=== PATIENT | female | born 1955 | race Caucasian/White ===

== ENCOUNTER → 2018-10-13 10:11 | Outpatient (CLI) | payer BC, SELFPAY ==
--- NOTE | 2018-10-13 10:16 | MM_ITS ---
MM Dig screening mamm BI w/CAD CAD Screening COMPARISON: Digital mammograms with CAD 07/30/2017 and 07/24/2016 INDICATION: There is a history of breast cancer in patient's paternal cousin diagnosed after menopause. There has been a previous biopsy right breast for benign disease. TECHNIQUE: Standard CC and MLO images were obtained. R2 CAD reviewed. FINDINGS: Moderate diffuse fibroglandular densities are seen in the central portions of both breasts. There is a biopsy clip right breast and there are couple mole markers left breast. There is no suspicious lesion and there are no suspicious microcalcifications. IMPRESSION: Moderate breast density with no suspicious lesion seen BI-RADS Category: 2 Benign Finding(s) RECOMMENDED FOLLOW-UP: 1YR - 1 YEAR FOLLOW-UP (A letter has been sent to the patient regarding results of the study.)
== END ==
PROVIDERS: PCP Family Medicine; Visit Provider Family Medicine
DX: Z12.31 Encounter for screening mammogram for malignant neoplasm of breast (principal)
CPT/HCPCS: 77067

== ENCOUNTER → 2018-11-21 09:40 | Outpatient (CLI) | payer BC, SELFPAY ==
--- NOTE | 2018-11-21 09:45 | XR_ITS ---
EXAM: XR lumbar spine min 4V HISTORY: ITS.REASON: MIDLINE LOW BACK PAIN W/O SCIATICA ORDERING PHYSICIAN: Santosh Gillespie MD PATIENT AGE: 63 years COMPARISON: None FINDINGS: There is minimal levoscoliosis of lumbar spine with multilevel degenerative disc disease from L1 S1. There is 3 mm anterolisthesis of L5 on S1. Mild facet sclerotic changes are present at L4-L5 and L5-S1. No fracture or dislocation. No lytic or blastic change. IMPRESSION: Lumbar spondylosis with degenerative disc disease and facet arthritic change
== END ==
PROVIDERS: PCP Family Medicine; Visit Provider Family Medicine
DX: M54.5 Low back pain (principal)
CPT/HCPCS: 72110

== ENCOUNTER → 2019-10-16 07:36 | Outpatient (CLI) | payer BC, SELFPAY ==
--- NOTE | 2019-10-16 08:07 | MM_ITS ---
PROCEDURE: MM DIG SCREENING MAMM BI W/CAD CLINICAL INDICATION: SCREENING COMPARISON: [facility] DIG MAMM-SCREEN ALON from 07/24/2016 [facility] DIG MAMM-SCREEN ALON W/CAD from 07/30/2017 [facility] MM Dig screening mamm BI w/CAD from 10/13/2018 TECHNIQUE: Standard CC and MLO images and 3D Tomosynthesis was obtained. R2 CAD reviewed. FINDINGS: The breasts are dense. Metallic stereotactic biopsy clip is seen in the upper-outer quadrant of the right breast. There is no discrete mass suspicious clustered microcalcification or other findings suspicious for malignancy. Benign appearing calcifications are noted. IMPRESSION: BI-RAD Category: 2 Benign Finding(s) FOLLOW-UP: 1YR 1 Year Follow-up (A letter has been sent to the patient regarding results of the study.) Dictated by: Moreno Bryan 10/16/2019 09:20 Electronically signed by Moreno Bryan in [place] 10/16/2019 09:20
== END ==
PROVIDERS: PCP Family Medicine; Visit Provider Family Medicine
DX: Z12.31 Encounter for screening mammogram for malignant neoplasm of breast (principal)
CPT/HCPCS: 77063; 77067

== ENCOUNTER 2020-07-23 07:35 | Emergency (ER) | payer BC, SELFPAY ==
--- NOTE | 2020-07-23 | ECG_ITS ---
APPROVED REPORT Exam: Resting ECG HR:66 bpm ECG Measurements Heart Rate 66 AXES WV 156 P 59 QRSd 108 QRS 35 QT 438 T 50 QTc 459 Conclusion Normal sinus rhythm Low voltage QRS Incomplete right bundle branch block Borderline ECG Electronically signed by : David Garcia, 07/25/2020 07:27:41
[2020-07-23 07:35] VITALS: BP 150/86; PULSE 61; RESP 19; TEMP 36.4; O2SAT 100; BMI 22.3
--- NOTE | 2020-07-23 07:59 | XR_ITS ---
PROCEDURE: XR CHEST PORTABLE Referring Doctor: Anthony Diaz Patient Age:65Y CLINICAL HISTORY: dizziness nonsmoker COMPARISON: CR [id number] XR Lumbar spine min 4V from 11/21/2018 FINDINGS: Portable upright AP CXR but performed today with no previous CXR for comparison . The lungs are well expanded and clear with nothing definitely acute. Cardiomediastinal silhouette and pulmonary vascularity are within normal limits. The lungs are clear without infiltrates, suspicious nodules, or pleural effusions. No acute bony abnormalities... Overlying fabric accounts for the linear folds appearing features projected over the right chest IMPRESSION: No acute findings. Lungs clear. Negative portable chest Dictated by: Todd Anthony MD 07/23/2020 14:01 Todd Anthony MD in [place] 07/23/2020 14:01
--- NOTE | 2020-07-23 08:04 | HMH.EDDIZZ ---
ED Disposition Clinical Impression: Benign paroxysmal positional vertigo Qualifiers: Laterality: left Qualified Code(s): H81.12 - Benign paroxysmal vertigo, left ear Disposition: Home, Self-Care Condition on Discharge: Good Instructions: Vertigo Prescriptions: Ondansetron [Zofran 4mg ODT] 4 mg PO Q6HP PRN #30 tab.rapdis PRN Reason: Nausea Transmission Status: Pending to [facility] # Meclizine HCl [Meclizine 25mg Tab] 25 mg PO Q8HP PRN #30 tab PRN Reason: dizziness/vertigo Transmission Status: Pending to [facility] # Referrals: PCP,No [Non-Staff] - - Critical Care Critical Care Time: No Attestation: On 07/23/20, the high probability of a clinically significant, sudden or life threatening deterioration of the following system(s) required my full and direct attention, intervention and personal management. The time I documented below is in addition to time spent performing reported procedures but includes the following listed in this critical care notation. Medical Decision Making - Medical Records Medical records reviewed: Yes: I reviewed the patient's medical records. - Sina Inquiry Pt receiving controlled substance: No Vital Signs: 07/23/20 07:35 07/23/20 08:27 07/23/20 09:21 Temperature 97.5 F L Temperature Source Oral Pulse Rate [Left Radial] 61 63 61 Respiratory Rate 19 Blood Pressure [Right Arm] 150/86 H 149/82 H 141/77 H Blood Pressure Mean [Right Arm] 107 104 98 Blood Pressure Source [Right Arm] Automatic Cuff Automatic Cuff Automatic Cuff Blood Pressure Position [Right Arm] Sitting Sitting Sitting 02 Sat by Pulse Oximetry 100 95 97 Oxygen Delivery Method Room Air Room Air Room Air - Lab Data Lab results reviewed: Yes: I reviewed the patient's lab results. Lab Results 07/23/20 07:30: WBC 4.6 L, RBC 4.86, Hgb 14.1, Hct 44.3, MCV 91.1, MCH 29.1, MCHC 31.9, RDW 13.5, Plt Count 211, MPV 7.7, Neut % (Auto) 61.3, Lymph % (Auto) 30.6, [place] % (Auto) 4.5, Eos % (Auto) 2.9, Baso % (Auto) 0.7, Neut # (Auto) 2.8, Lymph # (Auto) 1.4, [place] # (Auto) 0.2, Eos # (Auto) 0.1, Baso # (Auto) 0.0 07/23/20 07:30: Sodium 138, Potassium 3.8, Chloride 103, Carbon Dioxide 29, Anion Gap 9.8, BUN 22 H, Creatinine 0.70, Estimated Creat Clear 49, Estimated GFR 84, Est GFR ( Amer) 102, Glucose 110 H, Calcium 9.3, Total Bilirubin 0.5, AST 58 H, ALT 39, Alkaline Phosphatase 46, Total Protein 6.9, Albumin 4.1, Globulin 2.8, Albumin/Globulin Ratio 1.5 Result diagrams: 07/23/20 07:30 07/23/20 07:30 Orders (Tests/Meds): ED MEDICATIONS Discontinued Medications Generic Name Dose Route Start Last Admin Trade Name Freq PRN Reason Stop Dose Admin Sodium Chloride 1,000 mls @ 999 mls/hr 07/23/20 08:00 07/23/20 08:07 Sod Chlor 0.9% 1000ml Bag IV 07/23/20 09:00 999 mls/hr .Q1H1M CHELSY Administration Meclizine HCl 25 mg 07/23/20 07:59 07/23/20 08:08 Meclizine 25mg Tablet PO 07/23/20 08:00 25 mg ONCE ONE Administration Ondansetron HCl 4 mg 07/23/20 07:59 07/23/20 08:07 Ondansetron 4mg/2ml Vial IV 07/23/20 08:00 4 mg ONCE ONE Administration Promethazine HCl 12.5 mg 07/23/20 09:03 07/23/20 09:24 Promethazine Hcl 25mg/Ml 1ml Vial IV 07/23/20 09:04 12.5 mg ONCE ONE Administration Sodium Chloride 25 ml 07/23/20 09:03 07/23/20 09:24 Sodium Chloride 0.9% 25ml Bag IV 07/23/20 09:04 25 ml ONCE ONE Administration ORDERS Category Date Time Status XR chest portable Stat Exams 07/23/20 07:59 Taken - Radiology Data #1 Image(s): Chest Image Reviewed: Yes I reviewed the patient's radiology image Preliminary Findings: Normal/NAD - CT Data CT Scan: Head Time Received: 09:[address] Reviewed: Yes: I have reviewed the patient's CT results, I have viewed the radiologist's interpretation Preliminary Findings: Normal/NAD - ECG Data Tracing #1 ECG initial impression date: 07/23/20 ECG initial impression time:
--- NOTE | 2020-07-23 08:08 | CT_ITS ---
PROCEDURE: CT HEAD/BRAIN WO CON Referring Doctor: Anthony Manzanares Patient Age:65Y CLINICAL INDICATION: vertiginous symptoms. Vertigo since some some side 3 a.m. COMPARISON: No exams were available for comparison TECHNIQUE: No IV contrast. Standard axial images were obtained. All CT scans at the facility use one or more dose reduction, viz: automated exposure control, ma/kV adjustment per patient size (including targeted exams where dose is matched to indication, i.e. head), or iterative reconstruction technique. FINDINGS: No acute intracranial findings. No intracranial hemorrhage.. No territorial infarct evident There is mild cerebral atrophy age-appropriate No hydrocephalus.The ventricles and basal cisterns appear clear and satisfactory. No mass or midline shift nor mass effect. No subdural or extra-axial fluid collection is evident. Posterior fossa unremarkable.. I believe minimal streak artifact from base of skull accounts for some subtle lower density at the juan but no convincing abnormalities here. If symptoms should persist/recur may want to consider a follow-up MRI pre and postcontrast for more sensitive evaluation at posterior fossa Skull intact- calvarium unremarkable appearance. Nomastoid effusions. Mastoid air cells are well developed and clear. Middle ear clear bilaterally. IAC's symmetric.. CP angle regions appear clear on this noncontrast study Incidental note generous cerumen at the left external auditory canal basically occluding the left canal. Minimal cerumen at the right external auditory canal also noted Nosinus air-fluid level. Visualized portions of the paranasal sinuses and orbits unremarkable. IMPRESSION: No acute intracranial findings Incidental note: Generous cerumen appears to nearly occluding the left external auditory. Minimal cerumen at the right external auditory canal also noted Dictated by: Todd Anthony MD 07/23/2020 09:06 Todd Anthony MD in [place] 07/23/2020 09:06
[2020-07-23 08:10] LABS: Basophils % 0.7 % (0.1-2.0); Eosinophils # 0.1 K/mm3 (0.0-0.4); Eosinophils % 2.9 % (0.1-12.0); Hematocrit 44.3 % (37.0-47.0); Hemoglobin 14.1 g/dL (12.2-16.2); Lymphocytes # 1.4 K/mm3 (0.7-4.5); Lymphocytes % 30.6 % (10-50); Mean Corpuscular HGB Conc 31.9 g/dL (31.8-35.4); Mean Corpuscular Hemoglobin 29.1 pg (27.0-31.2); Mean Corpuscular Volume 91.1 fl (81-99); Mean Platelet Volume 7.7 fl (7.4-10.4); Monocytes # 0.2 K/mm3 (0.1-1.0); Monocytes % 4.5 % (1.7-9.3); Neutrophils # 2.8 K/mm3 (1.8-7.8); Neutrophils % 61.3 % (37.0-80.0); Platelet Count 211 K/mm3 (142-424); Red Blood Count 4.86 M/mm3 (4.20-5.40); Red Cell Distribution Width 13.5 % (11.5-17.5); White Blood Count 4.6 K/mm3 (4.8-10.8)
[2020-07-23 08:11] LABS: Chloride 103 mmol/L (98-107); Potassium 3.8 mmoL/L (3.5-5.1); Sodium 138 mmol/L (136-145)
--- NOTE | 2020-07-23 08:11 | PC.NURSE ---
rad at bedside
[2020-07-23 08:14] LABS: Alanine Aminotransferase 39 U/L (12-78); Albumin Level 4.1 g/dl (3.5-5.0); Albumin/Globulin Ratio 1.5 (1.1-1.8); Alkaline Phosphatase 46 U/L (38-126); Anion Gap 9.8 mEq/L (5-15); Aspartate Amino Transferase 58 U/L (14-36); Bilirubin,Total 0.5 mg/dl (0.2-1.3); Blood Urea Nitrogen 22 mg/dl (7-17); Carbon Dioxide 29 mmol/L (22.0-30.0); Creatinine Clearance Estimated 49 mL/min (50-200); Estimated Glomerular Filt Rate 84 ml/min (>60); GFR (African American) 102 ML/MIN (>60); Globulin 2.8 g/dL (1.3-3.2); Total Protein,Serum 6.9 g/dl (6.3-8.2)
[2020-07-23 08:15] LABS: Calcium 9.3 mg/dl (8.4-10.2); Glucose 110 mg/dl (74-100)
[2020-07-23 08:27] VITALS: BP 149/82; PULSE 63; O2SAT 95
--- NOTE | 2020-07-23 08:36 | PC.NURSE ---
Pt with rad.
[2020-07-23 09:21] VITALS: BP 141/77; PULSE 61; O2SAT 97
[2020-07-23 10:20] VITALS: BP 141/77; PULSE 61; RESP 20; TEMP 36.4; O2SAT 97
== END 2020-07-23 10:21 | disposition home or self-care (01) ==
PROVIDERS: Emergency Medicine; Emergency Provider Emergency Medicine; PCP Family Medicine
DX: H81.12 Benign paroxysmal vertigo, left ear (principal); I10 Essential (primary) hypertension; E78.5 Hyperlipidemia, unspecified; Z88.0 Allergy status to penicillin
CPT/HCPCS: 70450; 71045; 80053; 85025; 93005; 96374; 96375; 99283; J2405

== ENCOUNTER → 2020-10-27 10:31 | Outpatient (CLI) | payer MEDICARE, SELFPAY ==
--- NOTE | 2020-10-27 10:34 | MM_ITS ---
PROCEDURE: MM DIG SCREENING MAMM BI W/CAD Digital Breast Tomosynthesis Included CLINICAL INDICATION: SCREENING There is a history of breast cancer in the patient's paternal cousin diagnosed in 50s. There has been a previous biopsy right breast for benign disease. COMPARISON: MG [facility] DIG MAMM-SCREEN ALON W/CAD from 07/30/2017 MG [facility] MM Dig screening mamm BI w/CAD from 10/13/2018 MG MM DIG SCREENING MAMM BI W/CAD from 10/16/2019 . TECHNIQUE: Standard CC and MLO images and 3D Tomosynthesis was obtained. R2 CAD reviewed. FINDINGS: Moderate scattered fibroglandular densities are seen the central portions of both breasts and the findings are bilateral and symmetrical. There is a biopsy clip upper central portion right breast. There is no suspicious lesion in either breast and there are no suspicious microcalcifications. IMPRESSION: Moderate diffuse breast density with no suspicious lesions seen BI-RAD Category: 2 Benign Finding(s) FOLLOW-UP: 1YR 1 Year Follow-up (A letter has been sent to the patient regarding results of the study.) Dictated by: Dr. Ayden Jay MD 11/01/2020 11:53 Dr. Ayden Jay MD in [place] 11/01/2020 11:53
== END ==
PROVIDERS: PCP Family Medicine; Visit Provider Family Medicine
DX: Z12.31 Encounter for screening mammogram for malignant neoplasm of breast (principal)
CPT/HCPCS: 77063; 77067

== ENCOUNTER → 2021-02-27 10:47 | Outpatient (CLI) | payer MEDICARE, SELFPAY | PROVIDERS: Visit Provider Surgery | DX: Z01.812 Encounter for preprocedural laboratory examination (principal); Z20.822 Contact with and (suspected) exposure to COVID-19; Z12.11 Encounter for screening for malignant neoplasm of colon | CPT/HCPCS: U0003 ==

== ENCOUNTER 2021-03-01 09:09 | Day surgery (SDC) | payer MEDICARE, SELFPAY ==
[2021-02-22 14:21] VITALS: BMI 22.3
[2021-03-01 09:27] VITALS: BP 148/80; PULSE 82; RESP 18; TEMP 36.7; O2SAT 96
--- NOTE | 2021-03-01 09:48 | HMH.ANESCL ---
[facility] Anesthesia Checklist - Structural Data Admitted From: Home Planned Operative Procedure/s: colonoscopy Consent for Planned Operative Procedure(s) Verified: Yes - Airway Assessment C-Spine Mobility Assessed: Yes TMJ Mobility Assessed: Yes Dentition: Good Dentition - Neurological Assessment Level of Consciousness: Awake, Alert, Appropriate - Anesthesia Plan Anesthesia Risk discussed: Yes Anesthesia Plan: Verified ASA Class: II Anesthesia Type: MAC [facility] History I have reviewed the patient's past medical history: Yes Medical History: Reports:: Hyperlipidemia, Hypertension Denies:: Cancer, Diabetes Mellitus Type 1, Diabetes Mellitus Type 2, Internal Pacemaker, MRSA, Seizures *Have you ever received a pneumonia vaccine?: No *Have you received a flu vaccine this season?: Yes (05/2020) Anesthesia experience/problems:: none Laterality Cases: Left: Lumpectomy Other Surgeries: Yes: No Previous Surgery, Colonoscopy. No: Pacemaker Amputation: No Fractures: No - *Social History Last grade of school completed: Advanced degree Smoking Status: Never smoker Alcohol Intake: current Alcohol Intake Frequency:: 0-2 drinks per day Substance Use Type: denies use *Occupational Status:: retired Housing: house Household Members: spouse *Travel in the last 8 weeks: None Family Hx:: No significant family history
--- NOTE | 2021-03-01 10:31 | HMH.SCOPE ---
- Procedure: Date: 03/01/21 Patient Date of :: 1955 Procedure Performed:: Colonoscopy to terminal ileum with biopsies and polypectomy Indications:: Patient is a 65-year-old female who presents for follow-up colonoscopy. I had performed colonoscopy on 09/15/2013. She had some terminal ileitis but biopsies were unremarkable. She had a serrated adenoma in the ascending colon. Given the serrated adenoma I have performed follow-up colonoscopy on 07/12/2015. Polyps removed at that time or merely lymphoid nodule, hyperplastic polyp. Given the prior history of serrated adenoma I recommended 5-year follow-up colonoscopy. She is asymptomatic. No family history of colon cancer. Performing Provider:: Hever Whiteside MD Referring Provider:: None Sedation:: MAC sedation Procedure:: Patient was positioned in lateral decubitus position. Adequate intravenous sedation was achieved. Variable stiffness Olympus colonoscope was inserted via the anus. Was advanced to the cecum. Ileocecal valve and appendiceal orifice were clearly identified. In the periappendiceal location there was punctate ulceration. This was biopsied with cold biopsy forceps and sent as periappendiceal biopsy. Colonoscope was advanced into the terminal ileum. There were findings of mild terminal ileitis. Limited biopsy was obtained. In the region of the ascending colon there was a punctate colonic erosion which was biopsied with cold biopsy forceps. Colonoscope was withdrawn through the remainder of the colon. There was a possible polyp at the rectosigmoid region which was difficult to access. This may be lymphoid nodule. This was biopsied with cold biopsy forceps. Retroflexion within the rectum revealed internal hemorrhoids. Colonoscope was withdrawn. Findings:: Appendiceal punctate erosion/ulceration Mild terminal ileitis Ascending colon erosion Possible rectosigmoid polyp removed with cold biopsy forceps Recommendations:: Pending the pathology repeat colonoscopy 5 to 10 years Complications:: None immediately apparent Estimated blood obtained (mL): 3
[2021-03-01 10:32] VITALS: BP 97/60; PULSE 77; RESP 16; TEMP 36.6; O2SAT 96
[2021-03-01 10:42] VITALS: BP 109/40; PULSE 66; RESP 16; O2SAT 99
[2021-03-01 10:52] VITALS: BP 100/63; PULSE 65; RESP 16; O2SAT 100
[2021-03-01 11:02] VITALS: BP 122/63; PULSE 67; RESP 16; O2SAT 100
== END 2021-03-01 11:20 | disposition home or self-care (01) ==
LOC: OUTP 09:11
PROVIDERS: PCP Family Medicine; Visit Provider Surgery
PROC: 0DJD8ZZ Inspection of Lower Intestinal Tract, Via Natural or Artificial Opening Endoscopic (ICD-10-PCS; principal; 2021-03-01 10:30)
DX: K50.00 Crohn's disease of small intestine without complications (principal); Z86.010 Personal history of colon polyps; K63.5 Polyp of colon; Z79.899 Other long term (current) drug therapy; I10 Essential (primary) hypertension
CPT/HCPCS: 45380; 88305

== ENCOUNTER → 2021-08-11 11:55 | Outpatient (CLI) | payer MEDICARE, SELFPAY ==
--- NOTE | 2021-08-11 | ECG_ITS ---
APPROVED REPORT Exam: Resting ECG HR:71 bpm ECG Measurements Heart Rate 71 AXES IA 150 P 68 QRSd 98 QRS 61 QT 412 T 76 QTc 447 Conclusion Normal sinus rhythm Incomplete right bundle branch block Borderline ECG Electronically signed by : David Garcia MD 08/12/2021 06:14:12
== END ==
PROVIDERS: PCP Family Medicine; Visit Provider Family Medicine
DX: R00.2 Palpitations (principal)
CPT/HCPCS: 93005

== ENCOUNTER → 2021-10-30 09:42 | Outpatient (CLI) | payer MEDICARE, SELFPAY ==
--- NOTE | 2021-10-30 09:46 | MM_ITS ---
PROCEDURE INFORMATION: Exam: MG Bilateral Screening 3D Mammography Exam date and time: 10/30/2021 9:46 AM Age: 66 years old Clinical indication: Encounter for screening mammogram for malignant neoplasm of breast TECHNIQUE: Imaging protocol: Bilateral Screening tomosynthesis and 2D mammography including computer-aided detection (CAD) when performed. COMPARISON: 1. MG MM DIG SCREENING MAMM BI W/CAD 10/16/2019 8:07 AM 2. MG [facility] MM Dig screening mamm BI w/CAD 10/13/2018 10:27 AM FINDINGS: MAMMOGRAPHY: Breast composition: The breast tissue is heterogeneously dense, which may obscure small masses. Mass: None. Architectural distortion: None. Calcifications: No suspicious calcifications. Asymmetric density: None. Skin thickening: None. Axillary adenopathy: None. IMPRESSION: No mammographic evidence of malignancy. Annual screening is recommended unless otherwise clinically indicated. ASSESSMENT: BI-RADS Category 1: Negative
== END ==
PROVIDERS: PCP Family Medicine; Visit Provider Family Medicine
DX: Z12.31 Encounter for screening mammogram for malignant neoplasm of breast (principal)
CPT/HCPCS: 77063; 77067

== ENCOUNTER → 2022-03-12 11:03 | Outpatient (CLI) | payer MEDICARE, SELFPAY ==
--- NOTE | 2022-03-12 11:07 | XR_ITS ---
FINAL REPORT CLINICAL HISTORY: .pain rt thumb, c/o clicking when bending FINDINGS: 3 views of the right thumb were obtained. There is no acute fracture or dislocation. There are mild degenerative changes. The soft tissues are unremarkable. IMPRESSION: Mild degenerative change. Reviewed, Interpreted and Dictated by Hever Claros III, MD Transcribed by Burt Schneider Authenticated and . [facility]
== END ==
PROVIDERS: PCP Family Medicine; Visit Provider Family Medicine
DX: M79.644 Pain in right finger(s) (principal)
CPT/HCPCS: 73140

== ENCOUNTER 2022-04-20 10:00 | Outpatient (RCR) | payer MEDICARE, SELFPAY ==
--- NOTE | 2022-04-11 11:47 | HMH.OTOPEV ---
OT Inpatient Evaluation Rehab OT Outpatient Eval Start: 04/11/22 11:36 Freq: Status: Active Protocol: Document 04/11/22 11:36 LAURAJETT (Rec: 04/11/22 11:47 LAURAJETT [id number]) Electronically Signed By Pat Harden OT 04/11/22 11:36 Outpatient Therapy Subjective History Subjective History 66 year old female referred to skilled OP OT services for R thumb trigger finger. Patient stated to have pain in the right thumb for the past year with clicking snapping only getting worse. X-ray completed on 03/12/22 with results of mild degenerative changes. Patient recieved Kenalog and lidocaine HCI on with minimal relief. Patient has been wearing a thumb spica splint at all times since last week. Chief Complaint Pain,Catches/Locks,Weakness, Decreased Transactional Paralegal Strength Symptom Type Throb Symptoms Relieved By Nothing,Brace/Support Symptoms Aggravated By Physical Activity Prior Functional Limitations None Current Functional Limitations Lifting,Sleeping Symptom Description Constant and Continuous Level of pain today (0-10) 0 Pain scale - at its best (0-10) 0 Pain scale - at its worst (0-10) 6 Wrist/Hand Eval Thumb Range of Motion Right Thumb Metacarpophalangeal Flexion Active 50 Range of Motion (degrees) Thumb Metacarpophalangeal Extension -40 Active Range of Motion (degrees) Thumb Metacarpophalangeal Extension 0 Passive Range of Motion (degrees) Thumb Palmar Abduction (Carpometacarpal 40 Flex) Active Range (degrees) Thumb Radial Abduction (Carpometacarpal 40 Extens) Active Range (degrees) Thumb Interphalangeal Flexion Active 80 Range of Motion (degrees) Thumb Interphalangeal Extension Active -40 Range of Motion (degrees) Transactional Paralegal/Pinch Strength Right Transactional Paralegal Strength Measurement (lbs) 60 Left Transactional Paralegal Strength Measurement (lbs) 70 OT Outpatient Assessment Impairments Problems/Impairments Impaired Range of Motion, Impaired Endurance,Subjective C/O Pain Prognosis Rehab Potential Good Clinical Impression Consistent with Diagnosis Yes Short Term Goals Number of Weeks 2 Increase Range of Motion Yes: Improve extension to MP and IP to -30 R UE AROM Increase Strength Yes: Improve R developer programmer s
== END 2022-04-20 10:05 | disposition home or self-care (01) ==
LOC: OT 10:00
PROVIDERS: PCP Family Medicine; Visit Provider Orthopaedic Surgery
DX: M79.641 Pain in right hand (principal)
CPT/HCPCS: 97010; 97014; 97035; 97110; 97140; 97165; G0283

== ENCOUNTER → 2022-10-30 08:12 | Outpatient (CLI) | payer MEDICARE, SELFPAY ==
--- NOTE | 2022-10-30 08:17 | MM_ITS ---
PROCEDURE INFORMATION: Exam: MG Bilateral Screening 3D Mammography Exam date and time: 10/30/2022 8:18 AM Age: 67 years old Clinical indication: Screening. Paternal cousin had breast cancer. History of benign right needle biopsy. TECHNIQUE: Imaging protocol: Bilateral Screening tomosynthesis and 2D mammography including computer-aided detection (CAD) when performed. COMPARISON: 1. MG MM DIG SCREENING MAMM BI W/CAD 10/30/2021 9:52 AM 2. MG MM DIG SCREENING MAMM BI W/CAD 10/27/2020 10:44 AM 3. MG MM DIG SCREENING MAMM BI W/CAD 10/16/2019 8:07 AM 4. MG [facility] MM Dig screening mamm BI w/CAD 10/13/2018 10:27 AM FINDINGS: MAMMOGRAPHY: Breast composition: The breasts are heterogeneously dense, which may obscure small masses. Mass: None. Architectural distortion: None. Calcifications: No suspicious calcifications. Asymmetric density: None. Skin thickening: None. Axillary adenopathy: None. Other: Right biopsy clip. IMPRESSION: No mammographic evidence of malignancy. Annual screening is recommended unless otherwise clinically indicated. ASSESSMENT: BI-RADS Category 2: Benign
== END ==
PROVIDERS: PCP Family Medicine; Visit Provider Family Medicine
DX: Z12.31 Encounter for screening mammogram for malignant neoplasm of breast (principal)
CPT/HCPCS: 77063; 77067

== ENCOUNTER → 2023-03-20 08:34 | Outpatient (CLI) | payer MEDICARE, SELFPAY ==
--- NOTE | 2023-03-20 08:40 | XR_ITS ---
FINAL REPORT CLINICAL HISTORY: post menopausal COMPARISON: None FINDINGS: Using L1-4, the bone mineral density of the spine is 1.027 g/cm2, corresponding to T-score of -0.2. This is within the normal range. Using the left hip, the bone mineral density of the femoral neck is 0.688 g/cm2, corresponding to a T-score of -1.5. This is within the osteopenic range. Using the right hip, the bone mineral density of the femoral neck is 0.657 g/cm2, corresponding to a T-score of -1.7. This is within the osteopenic range. FRAX 10 year fracture risk is 3.4% for a hip fracture and 20% for a major osteoporotic fracture. NOTE: T-score: Standard deviation compared with peak bone mass of young adult mean. *Following the recommendations of the International Society of Bone densitometry, classification of hip BMD is based on the lower of two T-scores; total hip or femoral neck. IMPRESSION: Normal bone mineral density of the lumbar spine, with diminished bone mineral density in the bilateral hips consistent with osteopenia. Reviewed, Interpreted and Dictated by Nunu Joens MD Transcribed by Yue Tapia Authenticated and [facility]
== END ==
PROVIDERS: PCP Family Medicine; Visit Provider Family Medicine
DX: Z78.0 Asymptomatic menopausal state (principal); Z13.820 Encounter for screening for osteoporosis
CPT/HCPCS: 77080

== ENCOUNTER 2023-11-04 12:24 | Outpatient (CLI) | payer MEDICARE, SELFPAY ==
--- NOTE | 2023-11-04 12:28 | MM_ITS ---
PROCEDURE INFORMATION: Exam: MG Bilateral Screening 3D Mammography Exam date and time: 11/04/2023 12:53 PM Age: 68 years old Clinical indication: Screening examination . Family history of breast carcinoma. TECHNIQUE: Imaging protocol: Bilateral Screening tomosynthesis and 2D mammography including computer-aided detection (CAD) when performed. COMPARISON: 1. MG MM DIG SCREENING MAMM BI W/CAD 10/30/2022 8:18 AM 2. MG MM DIG SCREENING MAMM BI W/CAD 10/30/2021 9:52 AM 3. MG MM DIG SCREENING MAMM BI W/CAD 10/27/2020 10:44 AM FINDINGS: MAMMOGRAPHY: Breast composition: The breasts are heterogeneously dense, which may obscure small masses. Mass: No suspicious masses. Architectural distortion: No suspicious distortion. Calcifications: No suspicious calcifications. Asymmetric density: None. Skin thickening: None. Axillary adenopathy: None. IMPRESSION: 1. No mammographic evidence of malignancy. Annual screening is recommended unless otherwise clinically indicated. 2. Given the reported risk factors for this patient, a breast cancer risk assessment may prove useful for further evaluation. ASSESSMENT: BI-RADS Category 1: Negative
== END 2023-11-04 23:59 ==
LOC: RAD 12:25
PROVIDERS: PCP Family Medicine; Visit Provider Family Medicine
DX: Z12.31 Encounter for screening mammogram for malignant neoplasm of breast (principal)
CPT/HCPCS: 77063; 77067

== ENCOUNTER 2024-05-08 08:00 | Outpatient (RCR) | payer MEDICARE, SELFPAY | END 2024-05-08 08:05 | disposition home or self-care (01) | LOC: PT 08:00 | PROVIDERS: Visit Provider Orthopaedic Surgery | DX: M16.12 Unilateral primary osteoarthritis, left hip (principal) | CPT/HCPCS: 97014; 97110; 97163; 97164; 97530; G0283 ==

== ENCOUNTER 2024-11-05 08:13 | Outpatient (CLI) | payer MEDICARE, SELFPAY ==
--- NOTE | 2024-11-05 08:17 | MM_ITS ---
PROCEDURE INFORMATION: Exam: MG Bilateral Screening 3D Mammography Exam date and time: 11/05/2024 8:41 AM Age: 69 years old Clinical indication: Screening examination TECHNIQUE: Imaging protocol: Bilateral Screening tomosynthesis and 2D mammography including computer-aided detection (CAD) when performed. COMPARISON: 1. MG MM DIG SCREENING MAMM BI W/CAD 11/04/2023 12:53 PM 2. MG MM DIG SCREENING MAMM BI W/CAD 10/30/2022 8:18 AM FINDINGS: MAMMOGRAPHY: Breast composition: The breasts are heterogeneously dense, which may obscure small masses. Mass: No suspicious masses. Architectural distortion: None. Calcifications: No suspicious calcifications. Asymmetric density: None. Skin thickening: None. Axillary adenopathy: None. IMPRESSION: No mammographic evidence of malignancy. Annual screening is recommended unless otherwise clinically indicated. ASSESSMENT: BI-RADS Category 1: Negative.
== END 2024-11-05 23:59 | disposition home or self-care (01) ==
LOC: RAD 08:14
PROVIDERS: PCP Family Medicine; Visit Provider Family Medicine
DX: Z12.31 Encounter for screening mammogram for malignant neoplasm of breast (principal)
CPT/HCPCS: 77063; 77067

== ENCOUNTER 2025-03-29 13:04 | Outpatient (CLI) | payer MEDICARE, SELFPAY ==
--- NOTE | 2025-03-29 13:06 | XR_ITS ---
FINAL REPORT CLINICAL HISTORY: SCREENING COMPARISON: 03/20/2023 FINDINGS: Using L1-4, the bone mineral density of the spine is 1.021 g/cm2, corresponding to T-score of -0.2, within normal limits. Previously was 1.027 with a T-score of -0.2. Using the right hip, the bone mineral density of the femoral neck is 0.646 g/cm2, corresponding to a T-score of -1.8, consistent with osteopenia. Previously was 0.657 with a T-score of -1.7. Using the left forearm, the bone mineral density of 1/3 is 0.615 g/cm2, corresponding to a T-score of -1.3, consistent with osteopenia. FRAX 10 year fracture risk is 1.8% for a hip fracture and 10% for a major osteoporotic fracture. NOTE: T-score: Standard deviation compared with peak bone mass of young adult mean. *Following the recommendations of the International Society of Bone densitometry, classification of hip BMD is based on the lower of two T-scores; total hip or femoral neck. IMPRESSION: Diminished bone mineral density consistent with osteopenia. Normal bone mineral density of the lumbar spine, with diminished bone mineral density in the bilateral hips consistent with osteopenia. Reviewed, Interpreted and Dictated by Stephen Malone MD Transcribed by Yue Tapia Authenticated and . [facility]
--- OUTSIDE RECORDS SUMMARY | 2025-03-29 13:06 | XMS_ITS | Clinical Summary ---
Author Organization [facility] Address [address] [place] [id number] Care Team Providers Care Recruiting And Selection Consultant Name Role Phone Santosh Gillespie MD Primary Care Provider + [phone] Allergies Active Allergy Reactions Criticality Noted Date Comments Penicillins Other (See Comments) 02/10/2019 Not sure of reaction or possibly one of her siblings has this allergy Medications lisinopril (PRINIVIL,ZESTRIL) 10 MG tablet Take 1 tablet by mouth Daily. Active atorvastatin (LIPITOR) 10 MG tablet Take 1 tablet by mouth Daily. Active famotidine (PEPCID) 40 MG tablet 2 Active Calcium Carb-Cholecalcifero l (CALCIUM 500 +D PO) Take 1 tablet by mouth Daily. Active meloxicam (MOBIC) 15 MG tabletIndications:P rimary osteoarthritis of left hip 1 PO Daily with food. 4 Active Active Problems Problem Noted Date Diagnosed Date Arthritis of hip 04/06/2024 HTN (hypertension) 04/06/2024 Hyperlipidemia 04/06/2024 Status post total replacement of left hip 2023 Resolved Problems Problem Noted Date Diagnosed Date Resolved Date Hip arthritis 01/30/2024 04/06/2024 Primary osteoarthritis of left hip 01/30/2024 04/06/2024 Family History Medical History Relation Name Comments Heart attack Father Hypertension Father Hypertension Mother Relation Name Status Comments Father Mother Social History Tobacco Use Types Packs/Day Years Used Date Smoking Tobacco: Never Passive Smoke Exposure: Never Smokeless Tobacco: Never Tobacco Cessation:Counseling Given: Not Answered Alcohol Use Standard Drinks/Week Comments Yes 5 (1 standard drink = 0.6 oz pur e alcohol) AUDIT-C Answer Date Recorded Q1: How often do you have a drink containing alc ohol? Never 04/06/2024 Q2: How many drinks containi ng alcohol do you have on a typical day when you are drinking? 1 or 2 04/06/2024 Q3: How often do you have six or more drinks on one occasion? Never 04/06/2024 Abuse Screen Answer Date Recorded Feels Unsafe at Home or Work/School no 04/06/2024 Feels Threatened by Someone no 03/26 Does Anyone Try to Keep You From Having Contact with Others or Doing Things Outside Your Home? no 04/06/2024 Physical Signs of Abuse Present no 04/06/2024 Housing Stability Answer Date Recorded Current Living Arrangements home 03/26 Potentially Unsafe Housing Conditions Not on vandana e 04/06/2024 Disabilities Answer Date Recorded Difficulty Concentrating, Remembering or Making Decisions no 04/06/2024 Difficulty Managing Errands Independently no 04/06/2024 Education Answer Date Recorded Help with school or training? Not on file Preferred Language Micronesian 03/23/2024 Comments No Sex and Gender Information Value Date Recorded Sex Assigned at Not on file Legal Sex Female 12:36 PM EDT Gender Identity Not on file Sexual Orientation Not on file Last Filed Vital Signs Vital Sign Reading Time Taken Comments Blood Pressure 114/80 07/21/2024 8:37 AM EST Pulse 74 04/06/2024 3:33 PM EDT Temperature 36.3 C (97.3 F) 04/28/2024 1:15 PM EDT Respiratory Rate 16 04/06/2024 3:33 PM EDT Oxygen Saturation 97% 04/06/2024 3:33 PM EDT Inhaled Oxygen Concentration - - Weight 54 kg (119 lb) 07/21/2024 8:37 AM EST Height 157.5 cm (5' 2.01 ) 07/21/2024 8:37 AM ES T Body Mass Index 21.76 07/21/2024 8:37 AM EST Plan of Treatment Upcoming Encounters Date Type Department Care Team (Late st Contact Info) Description 04/20/2025 10:10 AM EDT Office Visit [facility] [address] [facility] [address] [place] [address] Neal Damon MD [address] [facility] [address] [place] [address] Health Maintenance Due Date Last Done Comments DXA SCAN 1955 LIPID PANEL 1955 TDAP/TD VACCINES (1 - Tdap) 1974 MAMMOGRAM 1995 COLOGUARD 2000 COLON CANCER SCREENING 5 YEA R SIGMOIDOSCOPY 2000 COLONOSCOPY 2000 COL[address]AL CANCER SCREENING 2000 CT COLONOGRAPHY 2000 FECAL OCCULT BLOOD TEST 2000 FIT Testing (1 year) 2000 ANNUAL WELLNESS VISIT 02/10/2019 HEPATITIS C SCREENING 02/10/2019 Pneumococcal Vaccine 50+ (2 of 2 - PCV) 08/11/2022 08/11/2021 COVID-19 Vaccine (2023-2 5 season) 2024 06/04/2024, 05/23/2022, 11/28/2021, Additional history exists INFLUENZA VACCINE 05/26/2025 06/04/2024, , 08/11/2021, Additional history exists ZOSTER VACCINE Completed 05/14/2023, 03/14/2023 Medical Devices Implanted Type Area Container Packer Operator Device Identifier Shelf Expiration Date Model / Serial / Lot Dev Contrl Tiss Stratafix Spiral Pdo Bidir 1 [id number] - [id number] Implanted:Qty : 1 on 04/06/2024 by Neal Damon MD at [facility] Implant Left: Hip [employer] J [employer] J [id number] 09/25/2025 [id number] / / [id number] Dev Contrl Tiss Stratafix Spiral Pdo Bidir Mo4 [id number] - [id number] Implanted:Qty : 1 on 04/06/2024 by Neal Damon MD at [facility] Implant Left: Hip [employer] J [employer] J [id number] 08/25/2025 [id number] / / [id number] Shll Trident2 Tritanium C/Hl 48mm - [id number] Implanted:Qty : 1 on 04/06/2024 by Neal Damon MD at [facility] Implant Left: Hip ZAINAB CAROL [id number] 03/04/2029 [id number] / / [id number] Scrw Hex Lp Trident2 6.5x30mm - [id number] Implanted:Qty : 1 on 04/06/2024 by Neal Damon MD at [facility] Implant Left: Hip ZAINAB CAROL [id number] 12/10/2028 [id number] / / [id number] Scrw Hex Lp Trident2 6.5x35mm - [id number] Implanted:Qty : 1 on 04/06/2024 by Neal Damon MD at [facility] Implant Left: Hip ZAINAB ACROL [id number] 12/28/2028 [id number] / / [id number] Insrt Hip Trident X3 0deg 36mm Szd Strl - [id number] Implanted:Qty : 1 on 04/06/2024 by Neal Damon MD at [facility] Implant Left: Hip ZAINAB CAROL [id number] 01/19/2029 [id number] / / [id number] Stem Fem Accolade2 V40 127d [id number] Sz5 - [id number] Implanted:Qty : 1 on 04/06/2024 by Neal Damon MD at [facility] Implant Left: Hip ZAINAB CAROL [id number] 12/11/2028 [id number] / / [id number] Hd Fem/Hip Biolox/Delta V40 Ceram 36mm Pls2.5 - [id number] Implanted:Qty : 1 on 04/06/2024 by Neal Damon MD at [facility] Implant Left: Hip ZAINAB CAROL [id number] 09/02/2028 [id number] / / [id number] Zainab Hip Soma Trident W/Bilox X3 - [id number] Implanted:Qty : 1 on 04/06/2024 by Neal Damon MD at [facility] Implant Left: Hip ZAINAB CAROL CAPSTRYKERH IPSOMATRIDW [id number] / / Insurance [facility] PPO Advance Directives * CPR (Attempt to Resuscitate) (Latest Code Status on File) Date Activated Date Inactivated Comments 04/06/2024 10:59 AM 04/06/2024 7:44 PM Question Answer Comments Code Status (Patient has no pulse and is not breathing): CPR (Attempt to Resuscitate) Medical Interventions (Patie nt has pulse or is breathing): Full Support Care Teams Recruiting And Selection Consultant Relationship Specialty Start Date End Date Santosh Gillespie MD [address] [facility] [address] [place] [id number] PCP - General Family Medicine 02/10/19
--- OUTSIDE RECORDS SUMMARY | 2025-03-29 13:06 | XMS_ITS ---
Author Organization Unknown Vital Signs BpStanding BpSitting BpSupine Date Temperature HeartRate Weight Hei ght Spo2 Respiration Bmi HeadCircumference FieldCount TimeRecorded NeckCircumferen ce WaistCircumference Pulse 122/80 09/15 00:00 :00 97.9 72 124,3.2 0 5,3 22.0 0 6 03/01/2025 09:00:00 122/80 03/18 00:00 :00 97.8 74 115,12. 80 5,3 20.5 1 6 03/01/2025 09:30:00
== END 2025-03-29 23:59 | disposition home or self-care (01) ==
LOC: RAD 13:05
PROVIDERS: PCP Family Medicine; Visit Provider Family Medicine
DX: Z13.820 Encounter for screening for osteoporosis (principal); M85.88 Other specified disorders of bone density and structure, other site
CPT/HCPCS: 77080